=== PATIENT | male | born 1960 | race Caucasian/White ===

== ENCOUNTER 2016-06-21 13:00 | Outpatient (RCR) | payer OTHER ==
[2016-05-25 13:59] VITALS: BP 127/84
[~2016-06-21 13:00] MED LIST: ALBUTEROL0.83 MG/ML IH; COMBIVENT RESPI1 SPR IH; FLOVENT DI50 MCG/Act IH; LEVAQUIN 5500 MG/TA1 PO; NORCO 325 MG-51 TAB PO; PREDNISONE20 M1 PO; PROAIR RESPICL90 MCG IH
== END 2016-06-28 11:38 | disposition home or self-care (01) ==
LOC: PT 13:00
DX: Z47.1 Aftercare following joint replacement surgery (principal); Z96.651 Presence of right artificial knee joint

== ENCOUNTER 2017-07-30 15:00 | Emergency (ER) | payer OTHER ==
[~2017-07-30] VITALS: Ht 170.2 cm; Wt 106.8 kg
[2017-07-30] MEDS ORDERED: IPRATROPIUM BROM3 M1 IH (15:05)
[2017-07-30 15:40] LABS: EOS % 0.2 % (0.0-4.0); HEMATOCRIT 54.5 % (42.0-52.0); HEMOGLOBIN 17.1 g/dL (13.5-18.0); MEAN CELL VOLUME 95 fl (78-100); MEAN CORPUSCULAR HEMOGLOBIN 30 pg (27-31); MEAN CORPUSCULAR HGB CONC 31 g/dL (33-37); MEAN PLATELET VOLUME 10.2 fl (7.4-10.4); MONO # 0.6 (0.20-0.80); NEU # 3.6 (1.40-6.50); PLATELET COUNT 154 K/mm3 (130-400); RED BLOOD COUNT 5.77 M/mm3 (4.20-5.60); RED CELL DISTRIBUTION WIDTH 14.4 % (11.5-14.5); WHITE BLOOD COUNT 5.2 K/mm3 (4.8-10.8)
[2017-07-30 15:53] LABS: ALBUMIN 3.9 g/dL (3.5-5.0); CALCIUM 8.2 mg/dL (8.4-10.2); POTASSIUM 4.4 mmol/L (3.6-5.0); TOTAL BILIRUBIN 0.4 mg/dL (0.2-1.3); TOTAL PROTEIN 6.9 g/dL (6.3-8.2)
[2017-07-30 16:03] LABS: D-DIMER 0.35 mg/L FEU (0.15-0.50); TROPONIN-I < 0.03 ng/mL (0.00-0.06)
[2017-07-30 18:48] VITALS: BP 111/80
== END 2017-07-30 18:40 | disposition short-term general hospital (02) ==
LOC: ED 15:00
PROVIDERS: Physician Assistant
DX: J44.1 Chronic obstructive pulmonary disease with (acute) exacerbation (principal); I48.91 Unspecified atrial fibrillation; R09.02 Hypoxemia; F17.200 Nicotine dependence, unspecified, uncomplicated; B34.9 Viral infection, unspecified; Z88.0 Allergy status to penicillin
CPT/HCPCS: J2930; J7030